=== PATIENT | female | born 1955 | race Caucasian/White ===

== ENCOUNTER 2018-07-06 08:39 | Observation (INO) ==
[2018-07-06] MEDS ORDERED: Isovue-370 500 ML INFUS..BTL IV ONE (09:08)
[2018-07-06] MEDS ORDERED: *HR* Enoxaparin 60 MG/0.6 ML SYRINGE SQ STA (09:09)
--- NOTE | 2018-07-06 09:12 | Emergency Department Note ---
Disposition Clinical Impression: Shortness of breath Disposition: Admitted As Inpatient Condition: Good Referrals: Panda Monroy DO [Primary Care Provider] - Forms: ED Satisfaction Letter Time of Disposition: 12:09 General Adult HPI - General Chief complaint: ED Shortness of Breath/Dyspnea Stated complaint: dyspnea, DVTs Time Seen by Provider: 07/06/18 09:01 Source: patient Mode of arrival: ambulatory Limitations: no limitations - History of Present Illness HPI Narrative: This is a 62-year-old female who comes to emergency department reporting shortness of breath present when she woke up 2 hours prior to arrival. She states that she was diagnosed with 6 DVTs in her left leg 2 days ago, started rivaroxaban yesterday, and took 2 doses of rivaroxaban yesterday. She did not take her morning dose today because of vomiting. She reports the pain in her left leg has also worsened. Pain Scale: 9 - Related Data Home Medications Medication Instructions Recorded Confirmed amLODIPine [Norvasc] 05/24/18 Previous Rx's Medication Instructions Recorded Rivaroxaban [Xarelto] 15 mg PO BID #42 tablet 07/04/18 Allergies Allergy/AdvReac Type Severity Reaction Status Date / Time No Known Allergies Allergy Verified 07/04/18 18:34 All systems ED: reviewed and negative except as stated. Cardiovascular: Denies: chest pain Respiratory: Reports: dyspnea Musculoskeletal: Reports: other (Left leg pain, posterior lower leg, knee, and thigh) Past Medical History - Past Medical History Medical history: Reports: DVT (Left leg), hypertension Psychiatric history: Reports: no psych history - Social History Smoking Status: Current every day smoker Smokeless Tobacco Status: No Alcohol use: Reports: none Drug use: Reports: none Physical Exam - General Limitations: no limitations General appearance: alert, in distress (In mild distress with shortness of breath) - Head Head exam: atraumatic, normocephalic, normal inspection - Chest Chest inspection: Present: normal inspection, symmetric chest wall rise - Respiratory Respiratory exam: Present: normal lung sounds bilaterally, respiratory distress (Mild respiratory distress). Absent: wheezes, accessory muscle use, prolonged expiratory phase - Cardiovascular Cardiovascular exam: Present: regular rate, normal rhythm, normal heart sounds - Abdominal Exam Abdominal exam: Present: soft, Non-Tender. Absent: tenderness, distention, guarding, rebound, rigidity - Extremities Exam Extremities exam: Present: normal inspection, full ROM, tenderness (Left flank is tender to behind the knee and behind the thigh), pedal edema (There is nonpitting pedal edema on the left) - Neurological Exam Neurological exam: Present: alert, oriented X3 - Psychiatric Psychiatric exam: Present: normal affect, normal mood - Skin Skin exam: Present: warm, dry, intact, normal color Course Course Narrative: This is a 62-year-old female with shortness of breath and known DVTs in her left leg. She has never had clots before. She missed today's dose of rivaroxaban because of vomiting. Because of her missed anticoagulation, a single dose of low molecular weight heparin was ordered at the 1 mg/kg dose. Vital Signs Temperature 98.6 F 07/06/18 08:43 Pulse Rate 98 07/06/18 08:43 Respiratory Rate 20 07/06/18 08:43 Blood Pressure 99/65 07/06/18 08:43 O2 Sat by Pulse Oximetry 100 07/06/18 08:43 Temperature 98.6 F 07/06/18 09:05 Pulse Rate 98 07/06/18 09:05 Respiratory Rate 20 07/06/18 09:05 Blood Pressure 99/65 07/06/18 09:05 O2 Sat by Pulse Oximetry 100 07/06/18 09:05 Oxygen Delivery Oxygen Delivery Room Air Medical Decision Making - [facility] Narrative Medical decision making narrative: This is a 62-year-old female with a complaint of increased shortness of breath and chest pain. This is not explainable by pulmonary pathology. Given an unremarkable CT pulmonary angiogram. Her troponin was slightly elevated at 0.05. I discussed her case with the on-call hospitalist, who accepted her for admission for an ACS rule out. - Lab Data Lab results reviewed: Yes I reviewed the patient's lab results. Lab results narrative: CBC shows WBC elevated at 17 BMP will showed slight hyponatremia 132 Troponin was slightly above normal at 0.05 BNP was low Result diagrams: 07/06/18 09:08 07/06/18 09:08 Lab Results 07/06/18 07/06/18 07/06/18 Range/Units 09:08 09:08 09:08 WBC 17.0 H (4.3-11.1) K/mcL RBC 4.94 (3.82-4.97) M/mcL Hgb 14.3 (11.5-15.4) g/dL Hct 41.7 (35.3-44.9) % MCV 84.4 (83.0-100.0) fL MCH 28.9 (28.0-33.3) pg MCHC 34.3 (31.6-35.5) g/dL RDW 13.8 (11.5-14.5) % Plt Count 361 (140-400) K/mcL MPV 10.0 (9.4-12.4) fL Immature Gran % 0.9 (0-4) % Seg Neutrophils % 68.4 % Lymphocytes % 15.3 % Monocytes % 14.8 % Eosinophils % 0.2 % Basophils % 0.4 % Neutrophils # 11.6 H (1.6-8.9) K/mcL Lymphocytes # 2.6 (0.6-4.6) K/mcL Monocytes # 2.5 H (0.0-1.3) K/mcL Eosinophils # 0.0 (0.0-0.6) K/mcL Basophils # 0.1 (0.0-0.2) K/mcL Sodium 132 L (136-145) mEq/L Potassium 3.8 (3.5-5.1) mEq/L Chloride 102 (98-107) mEq/L Carbon Dioxide 19 L (23-29) mEq/L BUN 10 (8-23) mg/dL Creatinine 1.01 (0.60-1.20) mg/dL Est GFR ( Amer) > 60 (> 60) Est GFR (Non-Af Amer) 56 L (> 60) BUN/Creatinine Ratio 10 (6-26) Glucose 131 H (70-105) mg/dL Calculated Osmolality 275 L (280-300) Calcium 8.9 (8.6-10.3) mg/dL Troponin I 0.05 H* (< 0.04) ng/mL B-Natriuretic Peptide 21 (Less than 100) pg/mL - EKG Data EKG #1 EKG attestation: Yes I reviewed and interpreted this EKG. EKG results narrative: ECG shows sinus rhythm, 87 bpm, normal intervals, normal axis, normal ST and T waves Critical Care Time Critical Care Time: Yes Total Critical Care Time: 15 Attestation: 50 minutes of critical care time was spent independent of separately billable procedures, involved in patient examination, review of results, discussion with family, and discussion with staff.
[2018-07-06] MEDS ORDERED: 0.9 % Sodium Chloride 1,000 ML IVC ONE (09:14)
[2018-07-06 09:40] LABS: Basophils # 0.1 K/mcL (0.0-0.2); Basophils % 0.4 %; Eosinophils % 0.2 %; Hematocrit 41.7 % (35.3-44.9); Hemoglobin 14.3 g/dL (11.5-15.4); Immature Granulocytes % 0.9 % (0-4); Lymphocytes # 2.6 K/mcL (0.6-4.6); Lymphocytes % 15.3 %; Mean Corpuscular HGB Conc 34.3 g/dL (31.6-35.5); Mean Corpuscular Hemoglobin 28.9 pg (28.0-33.3); Mean Corpuscular Volume 84.4 fL (83.0-100.0); Monocytes # 2.5 K/mcL (0.0-1.3); Monocytes % 14.8 %; Neutrophils # 11.6 K/mcL (1.6-8.9); Platelet Count 361 K/mcL (140-400); Red Blood Count 4.94 M/mcL (3.82-4.97); Red Cell Distribution Width 13.8 % (11.5-14.5); Segmented Neutrophils % 68.4 %
[2018-07-06 09:58] LABS: BUN/Creatinine Ratio 10 (6-26); Blood Urea Nitrogen 10 mg/dL (8-23); Calcium 8.9 mg/dL (8.6-10.3); Carbon Dioxide 19 mEq/L (23-29); Chloride 102 mEq/L (98-107); Glucose 131 mg/dL (70-105); Osmolality,Calculated 275 (280-300); Potassium 3.8 mEq/L (3.5-5.1); Sodium 132 mEq/L (136-145); eGFR For Non-African Americans 56 (> 60)
[2018-07-06 10:08] LABS: Troponin I 0.05 ng/mL (< 0.04)
--- NOTE | 2018-07-06 16:03 | Internal Med History&Physical ---
Date of Encounter: 07/06/18 Time of Encounter: 15:00 Internal Medicine - H&P: HPI Chief complaint: Nausea/vomiting Admitted From: Home History of present illness: Patient is a 62-year-old female with past medical history significant for hypertension and recent diagnosis of DVTs on Xarelto who presented to the ER on 07/06/18 due to feeling sick. Patient reports waking up this morning feeling sick which she describes as nausea and vomiting so decided to come into the ER for concerns that her blood clots have moved. She also report of some shortness of breath. In the ER, patient had a CTPA which showed no evidence of pulmonary embolism or acute pulmonary abnormalities. She was found to have an elevated troponin however of 0.05 in addition to leukocytosis with white blood count of 17.0. Patient will be admitted to medical surgical floor for ACS rule out. Past Med Surg Social Fam HX - Past Medical History Medical history: DVT, hypertension Psychiatric history: no psych history - Past Surgical History Surgical History: appendectomy - Social History Smoking Status: Current every day smoker Packs per day: 1 Smokeless Tobacco Status: No Alcohol use: none Drug use: none - Family History Father Hx Family Cardiac Disorders: Yes (atherosclerosis) Mother Hx Family Cancer: Yes (lung) Internal Medicine - H&P: Meds Albuterol Sulfate [Ventolin Hfa] 2 puff IH Q6H PRN 07/06/18 [History] Amlodipine Besylate [Amlodipine Besylate] 10 mg PO DAILY 07/06/18 [History] Cholecalciferol (D-3) [Vitamin D] 1,000 unit PO DAILY 07/06/18 [History] Loratadine [Claritin] 10 mg PO DAILY 07/06/18 [History] Rivaroxaban [Xarelto] 15 mg PO BID 07/06/18 [History] 3 Allergy/AdvReac Type Severity Reaction Status Date / Time No Known Allergies Allergy Verified 07/06/18 13:05 All Systems PM: A 10-system review of systems was performed and is negative for pertinent findings except as documented above in the HPI. - Constitutional Vitals: Temp Pulse Resp BP Pulse Ox 98.6 F 86 20 114/75 96 07/06/18 09:05 07/06/18 12:50 07/06/18 12:50 07/06/18 12:50 07/06/18 12:50 General appearance: Present: A&O X 3, no acute distress Exam: See below - Eye Eye exam: Present: normal appearance, PERRL, conjuntiva pink, sclera anicteric Pupils: Present: PERRL - ENT ENT exam: Present: mucous membranes moist - Respiratory Respiratory exam: Present: CTAB. Absent: accessory muscle use, rales, rhonchi, wheezes - Cardiovascular Cardiovascular exam: Present: RRR, +S1, +S2. Absent: diastolic murmur, gallop, rubs, systolic murmur - GI/Abdominal GI/Abdominal exam: Present: normal bowel sounds, soft, no peritoneal signs. Absent: distended, tenderness - Neurological Exam Neurological exam: Present: alert, oriented X3 - Psychiatric Psychiatric exam: Present: normal mood - Skin Skin exam: Present: normal color Internal Med - H&P Results - Labs CBC & Chem 7: 07/06/18 09:08 07/06/18 09:08 - Assessment and plan (1) Elevated troponin Current Visit: Yes Status: Acute Assessment and plan: Patient denies any chest pain and is currently not short of breath Patient with elevated troponin of 0.05 Will trend serial troponins and monitor on telemetry (2) HTN (hypertension) Current Visit: Yes Status: Acute Assessment and plan: Controlled; continue home dose of amlodipine Qualifiers: Qualified Code(s): I10 - Essential (primary) hypertension (3) Deep vein thrombosis of lower extremity Current Visit: No Status: Acute Assessment and plan: Continue home dose of Xarelto Qualifiers: Laterality: unspecified laterality Qualified Code(s): I82.409 - Acute embolism and thrombosis of unspecified deep veins of unspecified lower extremity (4) Smoker Current Visit: Yes Status: Acute Assessment and plan: Patient is a 57-year-old pack year smoker who is considering quitting Nicotine replacement offered - Time Spent With Patient Total time spent is greater than 50% in coordination of care (as documented) at patient's floor/unit and/or counseling patient:
[2018-07-06] MEDS ORDERED: Naloxone 0.4 MG/ML INJ IVP PRN (16:22)
[2018-07-06 17:33] LABS: Basophils # 0.1 K/mcL (0.0-0.2); Basophils % 0.4 %; Eosinophils # 0.1 K/mcL (0.0-0.6); Eosinophils % 0.5 %; Hematocrit 37.4 % (35.3-44.9); Hemoglobin 12.5 g/dL (11.5-15.4); Immature Granulocytes % 0.6 % (0-4); Lymphocytes # 3.7 K/mcL (0.6-4.6); Lymphocytes % 20.3 %; Mean Corpuscular HGB Conc 33.4 g/dL (31.6-35.5); Mean Corpuscular Hemoglobin 28.2 pg (28.0-33.3); Mean Corpuscular Volume 84.4 fL (83.0-100.0); Mean Platelet Volume 10.3 fL (9.4-12.4); Monocytes # 2.8 K/mcL (0.0-1.3); Monocytes % 15.8 %; Neutrophils # 11.2 K/mcL (1.6-8.9); Platelet Count 379 K/mcL (140-400); Red Blood Count 4.43 M/mcL (3.82-4.97); Red Cell Distribution Width 13.9 % (11.5-14.5); Segmented Neutrophils % 62.4 %
[2018-07-06] MEDS: *HR* Rivaroxaban 15 MG TABLET PO SCH (21:09)
[2018-07-07 05:07] LABS: Basophils # 0.1 K/mcL (0.0-0.2); Basophils % 0.4 %; Eosinophils # 0.2 K/mcL (0.0-0.6); Eosinophils % 1.3 %; Hematocrit 36.3 % (35.3-44.9); Hemoglobin 12.2 g/dL (11.5-15.4); Immature Granulocytes % 0.5 % (0-4); Lymphocytes # 3.6 K/mcL (0.6-4.6); Lymphocytes % 22.8 %; Mean Corpuscular HGB Conc 33.6 g/dL (31.6-35.5); Mean Corpuscular Hemoglobin 28.3 pg (28.0-33.3); Mean Corpuscular Volume 84.2 fL (83.0-100.0); Mean Platelet Volume 9.7 fL (9.4-12.4); Monocytes # 2.4 K/mcL (0.0-1.3); Monocytes % 15.2 %; Neutrophils # 9.5 K/mcL (1.6-8.9); Platelet Count 356 K/mcL (140-400); Red Blood Count 4.31 M/mcL (3.82-4.97); Red Cell Distribution Width 13.9 % (11.5-14.5); Segmented Neutrophils % 59.8 %
[2018-07-07 05:29] LABS: BUN/Creatinine Ratio 11 (6-26); Blood Urea Nitrogen 9 mg/dL (8-23); Calcium 8.6 mg/dL (8.6-10.3); Carbon Dioxide 22 mEq/L (23-29); Chloride 109 mEq/L (98-107); Glucose 103 mg/dL (70-105); Osmolality,Calculated 269 (280-300); Potassium 3.6 mEq/L (3.5-5.1); Sodium 130 mEq/L (136-145); eGFR For Non-African Americans > 60 (> 60)
[2018-07-07] MEDS ORDERED: Cholecalciferol (D-3) 1,000 UNIT TABLET PO SCH (09:00)
[2018-07-07] MEDS ORDERED: amLODIPine 5 MG TABLET PO SCH (09:00)
[2018-07-07] MEDS ORDERED: Loratadine 10 MG TABLET PO SCH (09:00)
[2018-07-07] MEDS: *HR* Rivaroxaban 15 MG TABLET PO SCH (09:32)
[2018-07-07 12:51] LABS: Bilirubin,Urine Negative (Negative); Blood,Urine Small (Negative); Clarity,Urine Cloudy (Clear); Color,Urine Yellow (Yellow); Glucose,Urine (UA) Normal (Normal); Ketones,Urine Negative (Negative); Leukocyte Esterase,Urine Small (Negative); Nitrite,Urine Negative (Negative); Protein,Urine Trace mg/dL (Neg-Trace); Specific Gravity,Urine 1.013 (1.010-1.025); Urobilinogen,Urine Normal (Normal)
[2018-07-07 12:54] LABS: Bacteria,Urine None Seen per hpf (None-Few); Hyaline Casts,Urine None Seen per lpf (None-Few); Squamous Epithelial Cell,Urine Many per lpf (None-Few)
[2018-07-07 13:12] LABS: RBC,Urine 0-3 per hpf (0-3)
--- NOTE | 2018-07-07 16:00 | Discharge Summary ---
- NOTES TO OUTPATIENT PROVIDER Notes to Outpatient Provider: Patient to follow-up with primary care provider for workup of infectious etiology due to leukocytosis and low-grade fevers Orders not resulted at time of discharge: Pending orders 07/07/18 08:59 Culture,Blood [BC] Routine 07/08/18 04:00 Complete Blood Count [HEME] AM 0400 07/09/18 04:00 Complete Blood Count [HEME] AM 0400 Date of Encounter: 07/07/18 Time of Encounter: 11:00 - Discharge Diagnosis (1) Elevated troponin Priority: Primary Status: Acute (2) HTN (hypertension) Priority: Secondary Status: Acute Qualifiers: Hypertension type: unspecified Qualified Code(s): I10 - Essential (primary ) hypertension (3) Deep vein thrombosis of lower extremity Priority: Secondary Status: Acute Qualifiers: Qualified Code(s): I82.409 - Acute embolism and thrombosis of unspecified deep veins of unspecified lower extremity (4) Smoker Priority: Secondary Status: Acute (5) Leukocytosis Priority: Secondary Status: Acute Qualifiers: Leukocytosis type: unspecified Qualified Code(s): D72.829 - Elevated white blood cell count, unspecified Hospital course: Patient is a 62-year-old female with past medical history significant for hypertension and recent diagnosis of DVTs on Xarelto who presented to the ER on 07/06/18 due to feeling sick. Patient reports waking up this morning feeling sick which she describes as nausea and vomiting so decided to come into the ER for concerns that her blood clots have moved. She also report of some shortness of breath. In the ER, patient had a CTPA which showed no evidence of pulmonary embolism or acute pulmonary abnormalities. She was found to have an elevated troponin however of 0.05 in addition to leukocytosis with white blood count of 17.0. Patient will be admitted to medical surgical floor for ACS rule out. During patients hospital stay, her cardiac biomarkers were negative and ACS was ruled out. However, patient presented with leukocytosis which slightly improved and also developed low-grade fever. Workup was initiated to rule out infectious etiology however patient was very upset and wanted to leave. Discussed with the patient about the risk and benefits and patient still would like to be discharged and follow-up with her primary care provider. - Time Spent with Patient Total time spent providing and/or coordinating discharge services: Less than 30 minutes - Discharge Medications Home Medications: Albuterol Sulfate [Ventolin Hfa] 2 puff IH Q6H PRN 07/06/18 [History] Amlodipine Besylate 10 mg PO DAILY 07/06/18 [History] Cholecalciferol (D-3) [Vitamin D] 1,000 unit PO DAILY 07/06/18 [History] Loratadine [Claritin] 10 mg PO DAILY 07/06/18 [History] Rivaroxaban [Xarelto] 15 mg PO BID 07/06/18 [History] Allergies/Adverse Reactions: 3 Allergy/AdvReac Type Severity Reaction Status Date / Time No Known Allergies Allergy Verified 07/06/18 13:05 Date of admission: 07/06/18 12:52 Primary care physician: Panda Monroy DO - Constitutional Vitals: Temp Pulse Resp BP Pulse Ox 99.3 F 83 18 104/67 94 07/07/18 11:27 07/07/18 11:27 07/07/18 11:27 07/07/18 11:27 07/07/18 11:27 General appearance: Present: A&O X 3, no acute distress Exam: Gen.: Nonacute distress, alert and oriented 3 Respiratory: Lungs are clear to auscultation bilaterally without any wheezing rhonchi or rales Cardiovascular: Normal S1 and S2 regular rate rhythm no murmurs rubs or gallops Abdomen: Soft, nontender and nondistended with positive bowel sounds Extremities: No lower extremity edema Skin: Normal color - Patient Status Disposition: Home, Self-Care Condition: Good - Discharge Instructions Follow Up With: Panda Monroy DO [Primary Care Provider] -
[2018-07-07 16:05] VITALS: BP 115/71
--- NOTE | 2018-07-08 16:26 | Electrocardiograph Report ---
[address] [address] Test Date: 2018-07-06 Pat Name: Hannah Brunner Department: EXAM3 Room: 2A Gender: F [employer] Operator: : 1955 Requested By: Dante Price Order Number: [id number] Reading MD: Dc Villatoro Measurements Intervals [place] Rate: 87 P: 45 MS: 123 QRS: 64 QRSD: 91 T: 27 QT: 366 QTc: 441 Interpretive Statements Sinus rhythm Electronically Signed On 07-08-2018 16:24:49 EDT by Dc Villatoro
== END 2018-07-07 16:33 | disposition home or self-care (01) ==
LOC: 2ANU 08:39 → EMEROOARM 08:39 → SUATTDRO 12:52 → 2ANU 13:20
PROVIDERS: ADMIT Student in an Organized Health Care Education/Training Program; ATTEND Hospitalist